=== PATIENT | male | born 1975 | race Caucasian/White ===

== ENCOUNTER → 2018-02-20 | Outpatient (CLI) | payer BC | LOC: COL.RAD 08:50 | DX: M25.551 Pain in right hip (principal) | CPT/HCPCS: J3301; Q9967 ==

== ENCOUNTER → 2018-05-11 | Outpatient (CLI) | payer BC | LOC: COL.RAD 11:11 | DX: M25.551 Pain in right hip (principal) ==

== ENCOUNTER → 2019-02-19 | Outpatient (CLI) | payer BC | LOC: COL.RAD 09:33 | DX: M16.11 Unilateral primary osteoarthritis, right hip (principal); Q65.89 Other specified congenital deformities of hip; S73.191A Other sprain of right hip, initial encounter; Z96.641 Presence of right artificial hip joint | CPT/HCPCS: A9585; Q9967 ==

== ENCOUNTER 2020-10-05 12:59 | Outpatient (CLI) | payer BC ==
[~2020-10-05] VITALS: Ht 180.3 cm; Wt 116.3 kg
[~2020-10-05 12:59] MED LIST: PROTONIX 40MG T40 MG PO
[2020-10-05 13:13] VITALS: BP 150/100; PULSE 84
[2020-10-05 14:00] VITALS: BP 120/88; PULSE 83; PULSE 86
[2020-10-05 14:15] VITALS: BP 117/71; PULSE 73
[2020-10-05 14:19] LABS: CSF APPEARANCE CLEAR; CSF COLOR COLORLESS; CSF RBC 407 /mm3 (0-0)
[2020-10-05 14:25] LABS: GLUCOSE,CSF 56 mg/dL (40-70); TOTAL PROTEIN,CSF 35 mg/dL (15-45)
[2020-10-05 14:30] VITALS: BP 108/68; PULSE 77
[2020-10-05 14:45] VITALS: BP 114/91; PULSE 67
[2020-10-05 15:00] VITALS: BP 120/72; PULSE 82
[2020-10-05 15:09] LABS: CSF POLYMORPHONUCLEAR 32 % (0-6)
[2020-10-05 15:10] LABS: CSF MONONUCLEAR 68 % (70-100)
[2020-10-07 15:31] LABS: CSF OLIG BD INTERPRETATION 0 bands (<2); CSF OLIGOCLONAL BANDING 0 bands (()); SE OLIGOCLONAL BANDING 0 bands (())
[2020-10-08 08:27] LABS: ALBUMIN CSF 17.6 mg/dL (<=27.0)
[2020-10-08 08:32] LABS: ALBUMUN SERUM 4220 mg/dL (()); IGG,SERUM 1130 mg/dL (()); IGG/ALBUMIN SERUM 0.27 (<=0.40)
[2020-10-08 08:45] LABS: CSF IGG/ALBUMIN 0.14 (<=0.21); CSF SYNTHESIS RATE 0.17 mg/24 h (<=12); CSF,IGG 2.5 mg/dL (<=8.1); CSF-IGG INDEX 0.52 (<=0.85)
== END 2020-10-05 15:37 | disposition home or self-care (01) ==
LOC: COL.RAD 12:59
PROVIDERS: Psychiatry & Neurology Neurology
DX: R20.0 Anesthesia of skin (principal)